=== PATIENT | female | born 1995 | race Caucasian/White ===

== ENCOUNTER 2017-06-14 06:16 | Emergency (ER) | payer OTHER ==
[~2017-06-14] VITALS: Ht 162.6 cm; Wt 78.0 kg
[~2017-06-14 06:16] MED LIST: NAPR-260 PO
[2017-06-14 06:19] VITALS: Ht 162.6 cm; Wt 78.0 kg
[2017-06-14] MEDS ORDERED: SOD CHLORIDE 0.9% 1,000 ML IV STA (06:24)
[2017-06-14] MEDS ORDERED: ALBUTEROL 0.5% (NEB) 2.5 MG/0.5 ML AMP INH STA (06:24)
[2017-06-14] MEDS ORDERED: IPRATROPIUM (NEB) 0.5 MG/2.5 ML AMP NEB STA (06:24)
[2017-06-14] MEDS ORDERED: METHYLPREDNISOLONE 125 MG INJ IV STA (06:24)
--- NOTE | 2017-06-14 06:30 | ERD ---
ER Documentation Chief Complaint Date/Time DATE: 06/14/17 TIME: 06:28 Chief Complaint cough, asthma, sob today, wheezes HPI 21-year-old female with history of asthma presents with shortness of breath and wheezing started this morning. She reports that she is taking montelukast but she ran out of her inhaler. Since then she is shortness breath, mild cough. She has not had any fevers or chills or hemoptysis. She denies any history of hospitalizations due to asthma. ROS All systems reviewed and are negative except as per history of present illness. Medications Home Meds Active Scripts Albuterol Sulfate* (Proair HFA*) 8.5 Gm Hfa.aer.ad, 2 PUFF INH Q4, #1 INHALER Prov:GUME CAMPOVERDE PA-C 06/14/17 Prednisone* (Prednisone*) 20 Mg Tab, 40 MG PO DAILY for 4 Days, TAB Prov:GUME CAMPOVERDE PA-C 06/14/17 Naproxen* (Naprosyn*) 500 Mg Tablet, 500 MG PO BID Y for PAIN AND/OR INFLAMMATION, #30 TAB Prov:TIERRA MANZANO PA-C 12/21/15 Allergies Allergies: Coded Allergies: No Known Allergy (Unverified , 12/21/15) PMhx/Soc Hx Respiratory Disorders: Yes (Asthma) Hx Alcohol Use: No Hx Substance Use: No Hx Tobacco Use: No Physical Exam Vitals Vital Signs Date Time Temp Pulse Resp B/P Pulse Ox O2 Delivery O2 Flow Rate FiO2 06/14/17 08:15 98.0 88 18 124/56 100 Room Air 06/14/17 06:36 118 26 98 21 06/14/17 06:19 98.3 132 20 120/77 97 Physical Exam General: Patient is in moderate distress, labored breathing HEENT: Head is normocephalic, atraumatic. Oropharynx clear Neck: Supple. Nontender. Lungs: Labored, wheezing bilaterally. Tachypnea Heart: Tachycardic, normal rhythm Abdomen: Soft, nontender, nondistended. Bowel sounds are normoactive. Extremities: No swelling to extremities. Neurologic: Alert and oriented 3. No focal deficits. Skin: Normal turgor. No rash or lesions. Results 24 hrs Current Medications Medications (Trade) Dose Ordered Sig/[place] Route PRN Reason Start Time Stop Time Status Last Admin Dose Admin Sodium Chloride (NS) 1,000 ml @ 1,000 mls/hr Q1H STAT IV 06/14/17 06:24 06/14/17 07:23 DC 06/14/17 06:38 Ipratropium [place] (Atrovent 0.02% (Neb)) 1 mg ONCE STAT NEB 06/14/17 06:24 06/14/17 06:26 DC 06/14/17 06:36 Albuterol (Proventil 0.5% (Neb)) 10 mg ONCE STAT INH 06/14/17 06:24 06/14/17 06:26 DC 06/14/17 06:36 Methylprednisolone Sodium Succinate (Solu-Medrol) 125 mg ONCE STAT IV 06/14/17 06:24 06/14/17 06:26 DC 06/14/17 06:37 Procedures/MDM ED course: Patient was started on breathing treatment, she was given albuterol 10 mg continuous neb breathing treatment, Atrovent 1 mg. She was given Solu-Medrol 125 mg IV with a fluid bolus of 1 L. We auscultation shows clear breath sounds, patient states that she is feeling better. MDM: 21 yo female comes in with an asthma exacerbation starting this morning. She was given Solu-Medrol as well as a breathing treatment and improved significantly. She reports that she is feeling better as well. This time her vital signs reviewed and stable, and patient's tachycardia is likely due to her shortness of breath previously. Suspicion for pulmonary embolus, acute coronary syndrome dissection is low. This patient is feeling much better and her pulmonary examination is benign at this time. Pulse oximetry has also been stable, without any evidence of hypoxia. Departure Diagnosis: Primary Impression: Asthma Condition: GUME Mcmillan PA-C Jun 14, 2017 06:30
[2017-06-14] MEDS ORDERED: PRED20TA PO (08:08)
[2017-06-14] MEDS ORDERED: ALBU8.5H3 INH (08:08)
[2017-06-14 08:15] VITALS: BP 124/56; PULSE 88; RESP 18; TEMP 98
== END 2017-06-14 08:15 | disposition home or self-care (01) ==
LOC: FTE 06:16
DX: J45.901 Unspecified asthma with (acute) exacerbation (principal)
CPT/HCPCS: 94644; 96361; 96374; J2930; J7030; Z7502; Z7610; 94640

== ENCOUNTER 2017-07-06 17:33 | Emergency (ER) | END 2017-07-06 19:37 | disposition home or self-care (01) | DX: J45.901 Unspecified asthma with (acute) exacerbation (principal) | CPT/HCPCS: 71010; J7512; Z7502; Z7610 ==